=== PATIENT | female | born 1990 | race Caucasian/White ===

== ENCOUNTER 2020-12-23 14:31 | Emergency (ER) | payer BC, SELFPAY ==
[2020-12-23 14:43] VITALS: BP 137/76; PULSE 80; RESP 16; TEMP 36.8; O2SAT 100
--- NOTE | 2020-12-23 15:02 | ED.SKABFB ---
HPI - Skin/Abscess/Foreign Bdy General Chief complaint: Skin/Abscess/Foreign Body Stated complaint: Skin irritation Time Seen by Provider: 12/23/20 14:57 Source: patient and RN notes reviewed Mode of arrival: ambulatory Limitations: no limitations History of Present Illness HPI narrative: Patient presents today complaining of a reddened, painful, and warm to touch area to the right upper arm. She received her COVID-19 vaccine on 12/13/2020. 1 week after the vaccine she developed these symptoms. She has been taking Benadryl at night as well as using hydrocortisone. States that hydrocortisone has been helping with the itching. She has also been using an ice pack. Denies fever or any additional symptoms. MD complaint: rash Related Data Allergies Allergy/AdvReac Type Severity Reaction Status Date / Time No Known Allergies Allergy Verified 12/23/20 14:50 Review of Systems Review of Systems: Narrative: CONSTITUTIONAL: Denies body aches, fever, chills, or sweats. EYES: Denies visual changes, redness, or discharge. ENT: Denies rhinorrhea, congestion, sore throat, or otalgia. CARDIOVASCULAR: Denies chest pain, palpitations, or edema. RESPIRATORY: Denies cough or dyspnea. GASTROINTESTINAL: Denies abdominal pain, nausea, vomiting, or diarrhea. GENITOURINARY: Denies dysuria or hematuria. SKIN: + Redness and warmth to the right upper arm MUSCULOSKELETAL: Denies back pain, joint pain, or myalgia. NEUROLOGIC: Denies headache, numbness, tingling, or weakness. PSYCH: Denies depression or anxiety. PMFSH Comments At time of signature, I have reviewed and agree with nursing past medical, surgical, social and family history unless otherwise noted. Please see nursing chart for further information. There is no relevant family history pertinent to the presenting complaint Exam Narrative: Exam Narrative: GENERAL: Well-appearing, well-nourished, and in no acute distress. HEAD: Normocephalic, atraumatic. EYES: EOMI. No redness or drainage. Conjunctivae normal. ENT: Mucous membranes pink and moist. NECK: Normal AROM. CHEST: No respiratory distress. EXTREMITIES: Normal range of motion. No edema. SKIN: Warm, dry. Capillary refill normal. Normal skin turgor. 10x9cm area of erythema and increased warmth to the right proximal upper arm. No induration, fluctuance. Mildly tender to palpation. Full range of motion of the arm. Distal sensation intact. Capillary refill normal. Radial pulse normal. NEURO: No focal deficits. Alert and oriented x3. Gait steady. PSYCH: Normal affect. No signs of depression or anxiety. Course Vital Signs Vital signs: Vital Signs Temperature 98.2 F 12/23/20 14:43 Pulse Rate 80 12/23/20 14:43 Respiratory Rate 16 12/23/20 14:43 Blood Pressure 137/76 12/23/20 14:43 Pulse Oximetry 100 12/23/20 14:43 Temperature 98.2 F 12/23/20 14:43 Pulse Rate 80 12/23/20 14:43 Respiratory Rate 16 12/23/20 14:43 Blood Pressure 137/76 12/23/20 14:43 Pulse Oximetry 100 12/23/20 14:43 Reviewed. Pt has been instructed to follow up with her PCP regarding her elevated blood pressure today. MDM - Skin/Abscess/Foreign Bdy Differential Diagnosis Differential diagnosis: Likely abscess of skin or subcutaneous tissue, urticaria, allergic reaction to drug, cellulitis and impetigo Critical Care Time Critical Care Time Critical Care Time: No Discharge Plan Discharge Clinical Impression: Cellulitis Qualifiers: Site of cellulitis: extremity Site of cellulitis of extremity: upper extremity Laterality: right Qualified Code(s): L03.113 - Cellulitis of right upper limb Patient Disposition: Home, Self-Care Condition: Stable Instructions: Antibiotic Form, Cellulitis (DC) Additional Instructions: Please take the Keflex as prescribed until gone. Continue Benadryl for itching. You may also continue the ice pack as well. Consider reporting this event to the CDC. Go to the ER immediately with any
== END 2020-12-23 15:10 | disposition home or self-care (01) ==
PROVIDERS: Emergency Provider Nurse Practitioner
DX: L03.113 Cellulitis of right upper limb (principal)
CPT/HCPCS: 99203; G0463

== ENCOUNTER 2021-03-23 14:10 | Emergency (ER) | payer BC, SELFPAY ==
[2021-03-23 14:18] VITALS: BP 127/90; PULSE 121; RESP 16; TEMP 37.3; O2SAT 98
--- NOTE | 2021-03-23 14:24 | ED.URI ---
HPI - URI/Sore Throat General Chief Complaint: Upper Respiratory Infection Stated Complaint: sore throat and fatigue Time Seen by Provider: 03/23/21 14:38 Source: patient and RN notes reviewed Mode of arrival: ambulatory Limitations: no limitations History of Present Illness HPI Narrative: 30-year-old female presents concern for sore throat and fatigue. Reports she has been more tired than usual for the last several days and yesterday began having a sore throat. Reports she has been fully vaccinated for Covid. She denies cough, shortness of breath, loss of sense of taste or smell, fever, rhinorrhea, nasal congestion. Denies known sick contacts. MD elicited complaint: sore throat Related Data Allergies Allergy/AdvReac Type Severity Reaction Status Date / Time No Known Allergies Allergy Verified 12/23/20 14:50 Review of Systems Review of Systems: Narrative: CONSTITUTIONAL: Denies malaise, chills, sweats, or fever. Reports fatigue EYES: Denies visual changes, redness, or discharge. ENT: Denies rhinorrhea, congestion, sinus pain, otalgia. Reports sore throat. CARDIOVASCULAR: Denies chest pain, palpitations, or edema. RESPIRATORY: Denies cough or dyspnea. GASTROINTESTINAL: Denies abdominal pain, nausea, vomiting, diarrhea SKIN: Denies rash or itching. MUSCULOSKELETAL: Denies myalgia. NEUROLOGIC: Denies headache. All systems reviewed & are unremarkable except as noted in HPI and below PMFSH Comments At time of signature, agree with nursing past medical, surgical, social and family history. There is no relevant family history pertinent to the presenting complaint Exam Narrative: Exam Narrative: GENERAL: Well-appearing, well-nourished, and in no acute distress. HEAD: Normocephalic EYES: PERRLA, conjunctivae clear ENT: Nares clear, turbinates erythematous, clear discharge, postnasal discharge. Mucous membranes moist. TM pearly perez with sharp light reflex bilaterally; no tragal tenderness. Oropharynx erythematous without lesions. Tonsils not enlarged and without exudate, no drooling, no hoarseness, no trismus, uvula midline. NECK: Supple. No lymphadenopathy CHEST: Clear to auscultation, breath sounds equal. No wheezing, rhonchi, rales, or stridor. No respiratory distress, speaks in full sentences. HEART: Regular rate and rhythm. No murmur heard. SKIN: Warm, dry, no rash. NEURO: Alert and oriented x3. PSYCH: Normal mood and affect Course Course Emergency Course: Patient is aware of diagnosis, understands and agrees to treatment plan. Anticipatory guidance given. Patient agrees to follow-up as directed and is aware of reasons to seek care at the emergency department. Portions of this record may have been created with voice recognition software Vital Signs Vital signs: Vital Signs Temperature 99.1 F 03/23/21 14:18 Pulse Rate 121 H 03/23/21 14:18 Respiratory Rate 16 03/23/21 14:18 Blood Pressure 127/90 03/23/21 14:18 Pulse Oximetry 98 03/23/21 14:18 Temperature 99.1 F 03/23/21 14:18 Pulse Rate 121 H 03/23/21 14:18 Respiratory Rate 16 03/23/21 14:18 Blood Pressure 127/90 03/23/21 14:18 Pulse Oximetry 98 03/23/21 14:18 Reviewed. MDM - URI/Sore Throat MDM Narrative Medical decision making narrative: Differential diagnosis considered: Sanchez virus, strep pharyngitis, allergic rhinitis, upper respiratory tract infection, sinusitis, rhinosinusitis, nasopharyngitis. viral pharyngitis, otitis media, otitis externa, pneumonia, bronchitis, viral cough syndrome, viral syndrome, and influenza. Exam findings show no acute concerns or changes; patient is non-toxic appearing and is in no distress. Patient is appropriate for outpatient treatment and follow-up. Lab Data Attestation: I reviewed the patient's lab results. Labs: Strep Screen Presumptive Negative *(Reference Range: Negative)* Critical Care Time Critical Care Time Critical Care Time:
== END 2021-03-23 14:53 | disposition home or self-care (01) ==
PROVIDERS: Emergency Provider Nurse Practitioner
DX: J06.9 Acute upper respiratory infection, unspecified (principal)
CPT/HCPCS: 87081; 87880; 99213; G0463

== ENCOUNTER 2023-01-03 16:21 | Emergency (ER) | payer BC, SELFPAY ==
[2023-01-03 16:26] VITALS: BP 112/69; PULSE 76; RESP 16; TEMP 36.8; O2SAT 100
--- NOTE | 2023-01-03 16:26 | ED.DENTAL ---
HPI - Dental/Oral General Chief complaint: Dental/Oral Stated complaint: tooth pain Time Seen by Provider: 01/03/23 16:27 Source: patient and RN notes reviewed History of Present Illness HPI Narrative: patient is a 32-year-old female who presents to urgent care with complaints of possible dental abscess to the left lower side. Patient states she has had dental pain for approximately 1 week after a possible broken tooth and or a filling falling out. Patient has been taking ibuprofen for the pain. No other acute complaints. No acute distress noted. Patient aware of the plan of care. Some parts of this dictation were generated by voice recognition software and may contain typographical and/or grammatical inaccuracies. Related Data Home Medications Medication Instructions Recorded Confirmed famotidine 40 mg tablet 40 mg DIRECTED 01/03/23 01/03/23 furosemide 20 mg tablet 20 mg DIRECTED 01/03/23 01/03/23 spironolactone 50 mg tablet 50 mg DIRECTED 01/03/23 01/03/23 Allergies Allergy/AdvReac Type Severity Reaction Status Date / Time No Known Allergies Allergy Verified 12/23/20 14:50 Review of Systems Review of Systems: CONSTITUTIONAL: Denies fever, chills, or sweats. EYES: Denies visual changes, redness, or discharge. ENT: Denies rhinorrhea, congestion, sore throat, or otalgia. Reports of left lower dental pain and facial swelling CARDIOVASCULAR: Denies chest pain, palpitations, or edema. RESPIRATORY: Denies cough or dyspnea. GASTROINTESTINAL: Denies abdominal pain, nausea, vomiting, or diarrhea. GENITOURINARY: Denies dysuria or hematuria. SKIN: Denies rash or itching. MUSCULOSKELETAL: Denies back pain, joint pain, or myalgia. NEUROLOGIC: Denies headache, numbness, or weakness. All other systems reviewed are negative, except as documented in HPI. PMFSH Comments At the time of my signature, I reviewed and agree with the nursing past medical, surgical, social, and family history. There is no relevant family history pertinent to the patient complaint. Exam Narrative: GENERAL: This is a well-nourished, well-developed patient, in no apparent distress. HEAD: normocephalic, atraumatic. EYES: PERRL. Sclera clear/white. Vision is grossly intact. EARS: External ears normal, auditory canals clear and without drainage, TMs normal without perforation. Hearing grossly intact. NOSE: External nose normal with no obvious nasal discharge, nares without redness, no rhinorrhea. THROAT: Mucous membranes moist, posterior pharynx clear. DENTAL: partial filling avulsion to the anterior aspect of tooth 18. With mild surrounding erythema and edema. NECK: Neck supple, non-tender left submandibular lymphadenopathy CARDIOVASCULAR: Regular rate and rhythm without murmurs, gallops, or rubs. SKIN: warm, intact with no suspicious lesions or rash, good texture and turgor. NEURO: awake, alert, and oriented to person, place and time. There were no obvious focal neurologic abnormalities. EXTREMITIES: No clubbing, cyanosis, or edema. Course Course Level of Care: Express Care Visit Vital Signs Vital signs: Vital Signs Temperature 98.2 F 01/03/23 16:26 Pulse Rate 76 01/03/23 16:26 Respiratory Rate 16 01/03/23 16:26 Blood Pressure 112/69 01/03/23 16:26 Pulse Oximetry 100 01/03/23 16:26 Oxygen Delivery Room Air 01/03/23 16:26 Temperature 98.2 F 01/03/23 16:26 Pulse Rate 76 01/03/23 16:26 Respiratory Rate 16 01/03/23 16:26 Blood Pressure 112/69 01/03/23 16:26 Pulse Oximetry 100 01/03/23 16:26 Oxygen Delivery Room Air 01/03/23 16:26 reviewed MDM - Dental/Oral MDM Narrative Medical decision making narrative: Advised patient complete the oral antibiotic regimen as prescribed. Be sure to eat and drink with the medication. Continue ibuprofen as needed for pain or discomfort and may also use a warm or cool compress to the face for swelling. Follow up with your PCP/dentist within 2-5 days o
== END 2023-01-03 16:59 | disposition home or self-care (01) ==
PROVIDERS: Emergency Provider Nurse Practitioner Family; PCP Hospitalist
DX: K04.7 Periapical abscess without sinus (principal); K74.60 Unspecified cirrhosis of liver; K21.9 Gastro-esophageal reflux disease without esophagitis
CPT/HCPCS: 99213; G0463